=== PATIENT | female | born 1985 | race Caucasian/White ===

== ENCOUNTER → 2017-10-10 | Outpatient (CLI) | payer OTHER ==
[2017-10-10 14:34] LABS: ALBUMIN 4.1 GM/DL (3.2-5.2); ALBUMIN/GLOBULIN RATIO 1.14 (1.00-1.93); ALKALINE PHOSPHATASE 93 U/L (45-117); ALT/SGPT 30 U/L (12-78); ANION GAP 7 MEQ/L (8-16); AST/SGOT 16 U/L (7-37); BILIRUBIN,TOTAL 0.6 MG/DL (0.2-1.0); BLOOD UREA NITROGEN 9 MG/DL (7-18); CALCIUM LEVEL 8.6 MG/DL (8.5-10.1); CARBON DIOXIDE LEVEL 26 MEQ/L (21-32); CHLORIDE LEVEL 108 MEQ/L (98-107); CHOLESTEROL LEVEL 179 MG/DL (<200); CHOLESTEROL RISK RATIO 2.237 (<5); CREATININE FOR GFR 0.65 MG/DL (0.55-1.30); GLOMERULAR FILTRATION RATE > 60.0 (>60); GLUCOSE, FASTING 86 MG/DL (70-100); HDL CHOLESTEROL 80 MG/DL (>40); LDL CHOLESTEROL 83.4 MG/DL (<100); NON-HDL-C 99 MG/DL; POTASSIUM SERUM 4.1 MEQ/L (3.5-5.1); SODIUM LEVEL 141 MEQ/L (136-145); THYROID STIMULATING HORMONE 0.857 uIU/ML (0.358-3.740); TOTAL PROTEIN 7.7 GM/DL (6.4-8.2); TRIGLYCERIDES LEVEL 78 MG/DL (<150)
== END ==
LOC: M LAB 13:18
DX: Z00.00 Encounter for general adult medical examination without abnormal findings (principal)
CPT/HCPCS: 84443

== ENCOUNTER 2019-08-05 05:29 | Emergency (ER) | payer OTHER ==
[~2019-08-05] VITALS: Ht 149.9 cm; Wt 63.2 kg
[~2019-08-05 05:29] MED LIST: IBUP80TA PO; MAPA500T2 PO
[2019-08-05] MEDS ORDERED: ZITHTAB PO (05:59)
[2019-08-05] MEDS ORDERED: ERYT1OIN26 OU (05:59)
[2019-08-05] MEDS ORDERED: ACETAMINOPHEN 500 MG TAB PO ONE (06:00)
[2019-08-05] MEDS ORDERED: ERYTHROMYCIN OPHTH OINT OU ONE (06:00)
[2019-08-05] MEDS ORDERED: IBUPROFEN 600 MG TAB PO ONE (06:00)
[2019-08-05] MEDS ORDERED: AZITHROMYCIN 250 MG TAB PO ONE (06:00)
[2019-08-05 06:15] VITALS: BP 131/81
== END 2019-08-05 06:17 | disposition home or self-care (01) ==
LOC: M ED 05:29
DX: H10.9 Unspecified conjunctivitis (principal); A49.3 Mycoplasma infection, unspecified site

== ENCOUNTER → 2023-12-28 | Outpatient (CLI) | payer MEDICAID ==
[~2023-12-28] MED LIST changes: +ERYT5OIN25 OU; +ZITHTAB PO
[2023-12-28 15:50] LABS: HEMATOCRIT 37.8 % (36.0-47.0); HEMOGLOBIN 12.8 g/dl (12.0-15.5); MEAN CORPUSCULAR HEMOGLOBIN 30.4 pg (27.0-33.0); MEAN CORPUSCULAR HGB CONC 33.9 g/dl (32.0-36.5); MEAN CORPUSCULAR VOLUME 89.8 fl (80.0-96.0); PLATELET COUNT, AUTOMATED 311 10^3/uL (150-450); RED BLOOD COUNT 4.21 10^6/uL (4.00-5.40); WHITE BLOOD COUNT 10.6 10^3/uL (4.0-10.0)
[2023-12-28 16:46] LABS: HIV 1&2 SCREEN NEGATIVE (NEGATIVE)
[2023-12-28 16:52] LABS: GC DNA AMPLIFICATION NEGATIVE (NEGATIVE); HEPATITIS C VIRUS ABY INDEX < 0.02 INDEX (<0.8)
== END ==
LOC: M PLALAB 14:21
PROVIDERS: ATTEND Advanced Practice Midwife
DX: Z34.82 Encounter for supervision of other normal pregnancy, second trimester (principal); Z3A.00 Weeks of gestation of pregnancy not specified

== ENCOUNTER → 2024-01-24 | Outpatient (CLI) | payer MEDICAID | LOC: M WHC 14:14 | PROVIDERS: ATTEND Advanced Practice Midwife | DX: Z34.82 Encounter for supervision of other normal pregnancy, second trimester (principal); Z3A.23 23 weeks gestation of pregnancy ==

== ENCOUNTER → 2024-02-05 | Outpatient (CLI) | payer MEDICAID, OTHER ==
[2024-02-05 16:34] LABS: HEMATOCRIT 36.9 % (36.0-47.0); HEMOGLOBIN 12.3 g/dl (12.0-15.5); MEAN CORPUSCULAR HEMOGLOBIN 30.6 pg (27.0-33.0); MEAN CORPUSCULAR HGB CONC 33.3 g/dl (32.0-36.5); MEAN CORPUSCULAR VOLUME 91.8 fl (80.0-96.0); PLATELET COUNT, AUTOMATED 319 10^3/uL (150-450); RED BLOOD COUNT 4.02 10^6/uL (4.00-5.40); WHITE BLOOD COUNT 10.3 10^3/uL (4.0-10.0)
[2024-02-05 16:50] LABS: GLUCOSE CHALLENGE TEST 1 HOUR 85 MG/DL (LESS THAN 140)
[2024-02-05 17:25] LABS: HIV 1&2 SCREEN NEGATIVE (NEGATIVE)
[2024-02-05 17:33] LABS: HEPATITIS C VIRUS ABY INDEX < 0.02 INDEX (<0.8)
[2024-02-05 17:40] LABS: GC DNA AMPLIFICATION NEGATIVE (NEGATIVE)
== END ==
LOC: M PLALAB 11:02
PROVIDERS: ATTEND Obstetrics & Gynecology
DX: Z34.92 Encounter for supervision of normal pregnancy, unspecified, second trimester (principal); Z3A.24 24 weeks gestation of pregnancy

== ENCOUNTER 2024-04-30 09:35 | Inpatient (IN) | payer MEDICAID, OTHER ==
[2024-04-30] VITALS (50 sets, daily range): BP systolic 111–195; BP diastolic 55–96; O2SAT 97–99
[~2024-04-30] VITALS: Ht 149.9 cm; Wt 77.7 kg
[~2024-04-30 09:35] MED LIST changes: +**PENDING PCN ENTRY XX SCH; -ASPI81CH33 PO; -PRENTAB9 PO
[2024-04-30] MEDS ORDERED: PRENTAB9 PO (09:56)
[2024-04-30] MEDS ORDERED: ASPI81CH33 PO (09:56)
[2024-04-30] MEDS ORDERED: HOME MED LIST COMPLETE! XX SCH (10:00)
[2024-04-30 10:45] LABS: HEMATOCRIT 31.9 % (36.0-47.0); HEMOGLOBIN 10.8 g/dl (12.0-15.5); MEAN CORPUSCULAR HEMOGLOBIN 28.9 pg (27.0-33.0); MEAN CORPUSCULAR HGB CONC 33.9 g/dl (32.0-36.5); MEAN CORPUSCULAR VOLUME 85.3 fl (80.0-96.0); PLATELET COUNT, AUTOMATED 237 10^3/uL (150-450); RED BLOOD COUNT 3.74 10^6/uL (4.00-5.40); WHITE BLOOD COUNT 7.7 10^3/uL (4.0-10.0)
[2024-04-30 10:58] LABS: TOTAL PROTEIN,RANDOM URINE 14.6 MG/DL (0.0-14.0)
[2024-04-30 11:03] LABS: CREATININE,RANDOM URINE 32.1 MG/DL
[2024-04-30 11:05] LABS: LDH LACTATE DEHYDROGENASE 184 U/L (120-246)
[2024-04-30] MEDS: NIFEdipine 10 MG CAP PO STA (11:05)
[2024-04-30 11:06] LABS: ALT/SGPT 16 U/L (7.0-40); AST/SGOT 14 U/L (<34); BILIRUBIN,TOTAL 0.4 MG/DL (0.3-1.2); CREATININE FOR GFR 0.66 MG/DL (0.55-1.30); GLOMERULAR FILTRATION RATE > 60.0 (>60)
[2024-04-30] MEDS ORDERED: PENICILLIN G POTASSIUM 5 MU IV 5 MU in D5W MINI-BAG PLUS 100 ML IV STA (11:26)
[2024-04-30] MEDS: LACTATED RINGER'S 1000 ML IV STA (11:26)
[2024-04-30] MEDS ORDERED: LIDOCAINE 1% MDV 20ML VIAL INFIL PRN (11:30)
[2024-04-30] MEDS ORDERED: OXYTOCIN DRIP 30 UNITS in IV 1 EA IV PRN (11:30)
[2024-04-30] MEDS ORDERED: TRANEXAMIC ACID INJection 1,000 MG in NS 100 ML IV PRN (11:30)
[2024-04-30] MEDS ORDERED: CARBOPROST TROMETHAMINE 250 MCG/ML AMP IM PRN (11:30)
[2024-04-30] MEDS: LR 1,000 ML IV SCH (12:10)
[2024-04-30] MEDS: ACETAMINOPHEN 500 MG TAB PO PRN (12:35)
[2024-04-30] MEDS: PENICILLIN G POTASSIUM 5 MU IV 5 MU in D5W MINI-BAG PLUS 100 ML IV STA (13:06)
[2024-04-30] MEDS: miSOPROStol 50MCG 1/2 TABLET PO ONE ×2 (13:23→20:34)
[2024-04-30 14:01] LABS: HEPATITIS C VIRUS ABY INDEX < 0.02 INDEX (<0.8)
[2024-04-30] MEDS ORDERED: CALCIUM GLUCONATE 1,000 MG in D5W MINI-BAG PLUS 100 ML IV PRN (14:45)
[2024-04-30] MEDS: MAG Sulf (L&D) 4 GM/100 ML 4 GM in IV 1 EA IV ONE (15:04)
[2024-04-30] MEDS: MAG Sulf (OBGYN) 20GM/500ML 20,000 MG in IV 1 EA IV SCH (15:26)
[2024-04-30] MEDS ORDERED: PEN G POT 3,000,000 UNIT/50 ML 3,000,000 UNIT in IV 1 EA IV SCH (15:30)
[2024-04-30] MEDS: PEN G POT 3,000,000 UNIT/50 ML 3,000,000 UNIT in IV 1 EA IV SCH (16:54)
[2024-04-30] MEDS ORDERED: oxyCODONE 5MG TAB PO ONE (17:35)
[2024-04-30] MEDS ORDERED: PERCOCET 5MG/325MG TAB As Ordered ONE (17:40)
[2024-04-30] MEDS: LABETALOL 100MG/20ML VIAL IV STA (17:44)
[2024-04-30] MEDS: PERCOCET 5MG/325MG TAB PO ONE (17:49)
[2024-04-30] MEDS: BUTORPHANOL 2 MG/ML 1ML VIAL IV ONE (20:35)
[2024-04-30] MEDS: PROMETHAZINE 25MG/ML 1ML VIAL IV ONE (20:35)
[2024-05-01] VITALS (92 sets, daily range): BP systolic 114–174; BP diastolic 58–108; O2SAT 96–100
[2024-05-01] MEDS: D5W 50 ML IV ONE (01:15)
[2024-05-01] MEDS: miSOPROStol 50MCG 1/2 TABLET PO ONE ×2 (02:16→06:30)
[2024-05-01] MEDS: LABETALOL 100MG/20ML VIAL IV STA (02:53)
[2024-05-01] MEDS: OXYTOCIN DRIP 30 UNITS in IV 1 EA IV SCH (11:01)
[2024-05-01 14:15] LABS: HEMATOCRIT 33.9 % (36.0-47.0); HEMOGLOBIN 11.2 g/dl (12.0-15.5); MEAN CORPUSCULAR HEMOGLOBIN 27.9 pg (27.0-33.0); MEAN CORPUSCULAR VOLUME 84.5 fl (80.0-96.0); PLATELET COUNT, AUTOMATED 265 10^3/uL (150-450); RED BLOOD COUNT 4.01 10^6/uL (4.00-5.40); WHITE BLOOD COUNT 8.3 10^3/uL (4.0-10.0)
[2024-05-01 14:38] LABS: URIC ACID 5.4 MG/DL (3.1-7.8)
[2024-05-01 14:40] LABS: LDH LACTATE DEHYDROGENASE 242 U/L (120-246)
[2024-05-01 14:50] LABS: ALT/SGPT 18 U/L (7.0-40); AST/SGOT 18 U/L (<34); BILIRUBIN,TOTAL 0.5 MG/DL (0.3-1.2); CREATININE FOR GFR 0.58 MG/DL (0.55-1.30); GLOMERULAR FILTRATION RATE > 60.0 (>60)
[2024-05-01] MEDS ORDERED: diphenhydrAMINE 50MG/ML VIAL IV PRN (15:25)
[2024-05-01] MEDS ORDERED: LR 500 ML IV PRN (15:25)
[2024-05-01] MEDS ORDERED: FENTANYL/ROPIVACAINE/NACL BAG 100 ML EPIDURAL SCH (15:25)
[2024-05-01] MEDS ORDERED: EPIDURAL/PCA KEYS XX PRN (15:25)
[2024-05-01] MEDS ORDERED: NALOXONE INJ 0.4MG/1ML VIAL IV PRN (15:25)
[2024-05-01] MEDS ORDERED: ePHEDrine SULFATE 25 MG/5 ML(5MG/ML) SYRINGE IVP PRN (15:25)
[2024-05-01] MEDS ORDERED: ONDANSETRON 4MG 2ML VIAL IV PRN (15:25)
[2024-05-01] MEDS: FENTANYL/ROPIVACAINE/NACL BAG 100 ML EPIDURAL SCH (16:02)
[2024-05-01] MEDS ORDERED: ACETAMINOPHEN TAB 650MG DOSE (2X325MG) PO PRN (20:10)
[2024-05-01] MEDS ORDERED: ACETAMINOPHEN 500 MG TAB PO PRN (20:10)
[2024-05-01] MEDS ORDERED: IBUPROFEN 800 MG TAB PO PRN (20:10)
[2024-05-01] MEDS ORDERED: DOCUSATE SODIUM 100MG CAPSULE PO PRN (20:10)
[2024-05-01] MEDS ORDERED: IBUPROFEN 600MG TAB PO PRN (20:10)
[2024-05-01] MEDS ORDERED: DIBUCAINE 1% OINTMENT 30GM TOP PRN (20:10)
[2024-05-01] MEDS: LABETALOL 200 MG TAB PO SCH (20:45)
[2024-05-02] VITALS (36 sets, daily range): BP systolic 111–181; BP diastolic 59–100; O2SAT 97–98
[2024-05-02] MEDS: RHO(D) IMMUNE GLOBULIN/MALTOSE 500MCG(2500IU)/2.2ML VIAL (WINRHO) IM SCH (00:17)
[2024-05-02] MEDS: PRENATAL VITAMINS CHEWABLE TABLET PO SCH (07:36)
[2024-05-02] MEDS: LABETALOL 200 MG TAB PO ONE ×2 (17:28→23:42)
[2024-05-03] VITALS (12 sets, daily range): BP systolic 125–182; BP diastolic 62–98; O2SAT 96–99
[2024-05-03] MEDS: MEASLES,MUMPS,RUBELLA VACCINE INJ (MMR-II) SC.IMMUN ONE (07:34)
[2024-05-03] MEDS: LABETALOL 200 MG TAB PO SCH (08:22)
[2024-05-03] MEDS: hydrALAZINE 20MG/ML 1ML VIAL IV STA (08:53)
[2024-05-03] MEDS: NIFEdipine 30MG XL TAB PO SCH (10:00)
[2024-05-03] MEDS: LABETALOL 200 MG TAB PO ONE ×2 (15:01→22:20)
[2024-05-03] MEDS: NIFEdipine 10 MG CAP PO ONE (16:31)
[2024-05-04] VITALS (7 sets, daily range): BP systolic 132–164; BP diastolic 65–94; O2SAT 96–98
[2024-05-04] MEDS: LABETALOL 200 MG TAB PO SCH (05:49)
[2024-05-04] MEDS: NIFEdipine 30MG XL TAB PO SCH (08:40)
[2024-05-04] MEDS ORDERED: NIFEdipine 30MG XL TAB PO SCH (09:00)
[2024-05-05 02:05] VITALS: BP 130/74; O2SAT 96
[2024-05-05 05:43] VITALS: BP 143/76; O2SAT 95
[2024-05-05 10:00] VITALS: BP 127/68; O2SAT 98
[2024-05-05 13:41] VITALS: BP 147/86
[2024-05-05 13:42] VITALS: BP 147/86
[2024-05-05] MEDS ORDERED: LABE20TAB PO (13:44)
[2024-05-05] MEDS ORDERED: NIFE1TAB52 PO (13:44)
== END 2024-05-05 14:00 | disposition home or self-care (01) | DRG 560 ==
LOC: M LDO 09:35 → M LDI 11:50 → M OBS 05-02 20:40
PROVIDERS: ADMIT Obstetrics & Gynecology; ATTEND Obstetrics & Gynecology
PROC: 3E0P7VZ Introduction of Hormone into Female Reproductive, Via Natural or Artificial Opening (ICD-10-PCS; 2024-04-30)
PROC: 3E0234Z Introduction of Serum, Toxoid and Vaccine into Muscle, Percutaneous Approach (ICD-10-PCS; 2024-04-30)
PROC: 10E0XZZ Delivery of Products of Conception, External Approach (ICD-10-PCS; principal; 2024-05-01)
DX: O14.14 Severe pre-eclampsia complicating childbirth (principal); O09.523 Supervision of elderly multigravida, third trimester; Z37.0 Single live birth; Z3A.37 37 weeks gestation of pregnancy

== ENCOUNTER → 2024-04-30 | Outpatient (REF) | payer MEDICAID, OTHER ==
[~2024-04-30] MED LIST changes: +ASPI81CH33 PO; +PRENTAB9 PO
== END ==
LOC: M PLALAB 08:34
PROVIDERS: ATTEND Obstetrics & Gynecology
DX: Z36.89 Encounter for other specified antenatal screening (principal); Z3A.37 37 weeks gestation of pregnancy

== ENCOUNTER → 2024-04-30 | Outpatient (REF) | payer MEDICAID, OTHER | LOC: M SFHCWAGY 12:50 | PROVIDERS: ATTEND Obstetrics & Gynecology | DX: Z36.89 Encounter for other specified antenatal screening (principal); Z3A.37 37 weeks gestation of pregnancy ==

== ENCOUNTER → 2024-10-21 | Outpatient (REF) | payer OTHER ==
[~2024-10-21] MED LIST changes: -**PENDING PCN ENTRY XX SCH; +ASPI81CH33 PO; +LABE20TAB PO; +NIFE1TAB52 PO; +PRENTAB9 PO
[2024-10-23 11:08] LABS: HPV APTIMA Not Detected (Not Detected)
== END ==
LOC: M SFHCWAGY 15:43
PROVIDERS: ATTEND Advanced Practice Midwife
DX: Z12.4 Encounter for screening for malignant neoplasm of cervix (principal)

== ENCOUNTER → 2024-10-25 | Outpatient (CLI) | payer OTHER | LOC: M WHC 12:21 | PROVIDERS: ATTEND Advanced Practice Midwife | DX: Z12.31 Encounter for screening mammogram for malignant neoplasm of breast (principal); R92.333 Mammographic heterogeneous density, bilateral breasts; Z80.3 Family history of malignant neoplasm of breast ==